=== PATIENT | male | born 1950 | race Hispanic/Latino ===

== ENCOUNTER → 2018-01-20 | Outpatient (CLI) | payer MEDICARE ==
[~2018-01-20] MED LIST: ACET-2247 PO; ASPI-1005 PO; ASPI-1012 PO; Aspirin PO; BRIM5DRO4 OU; DIAZ5TAB4 PO; FURO20TA4 PO; HYDR-309 PO; HYDR25TA PO; LATANOPROST OU; LISI-617 PO; MELO-108 PO; NAPR-1023 PO; OXYC5 PO; PREG25 PO; SIMV20TA6 PO; TAMS0.4C32 PO; UREA TP
== END | disposition home or self-care (01) ==
LOC: OIH 15:12
PROVIDERS: ATTEND Internal Medicine
DX: I50.20 Unspecified systolic (congestive) heart failure (principal)
CPT/HCPCS: 71046

== ENCOUNTER 2018-01-29 15:30 | Inpatient (IN) | payer MEDICARE ==
[~2018-01-29] VITALS: Ht 175.3 cm; Wt 117.6 kg
[~2018-01-29 15:30] MED LIST changes: -ACET-2247 PO; -ASPI-1005 PO; -ASPI-1012 PO; -Aspirin PO; -BRIM5DRO4 OU; -DIAZ5TAB4 PO; -FURO20TA4 PO; -HYDR-309 PO; -MELO-108 PO; -NAPR-1023 PO; -OXYC5 PO; -PREG25 PO; -UREA TP
[2018-01-29 16:30] VITALS: BP 125/65
[2018-01-29 16:43] LABS: BASOPHILS % (AUTO) 0.7 % (0.0-5.0); EOSINOPHILS % (AUTO) 7.4 % (0.0-8.0); HEMATOCRIT 44.3 % (42-54); LYMPHOCYTES % (AUTO) 24.7 % (21.0-51.0); MEAN CORPUSCULAR HEMOGLOBIN 30.2 pg (27.0-33.0); MEAN CORPUSCULAR HGB CONC 34.4 g/dL (32.0-36.0); MEAN CORPUSCULAR VOLUME 87.8 fL (79-99); MONOCYTES % (AUTO) 9.1 % (3.0-13.0); NEUTROPHILS % (AUTO) 58.1 % (40.0-77.0); PLATELET COUNT (AUTO) 148 K/uL (130-400); RED BLOOD CELL COUNT(AUTO) 5.04 MIL/uL (4.50-6.20); RED CELL DISTRIBUTION WIDTH 14.3 % (11.0-15.5); WHITE BLOOD COUNT (AUTO) 6.2 K/uL (4.8-10.8)
[2018-01-29 16:43] LABS: APPEARANCE,URINE Clear (CLEAR); BILIRUBIN,URINE Negative (NEGATIVE); COLOR,URINE Yellow (YELLOW); GLUCOSE, URINE (UA) Negative (NEGATIVE); KETONES,URINE Negative (NEGATIVE); LEUKOCYTE ESTERASE ,URINE Negative (NEGATIVE); NITRATE,URINE Negative (NEGATIVE); OCCULT BLOOD,URINE Negative (NEGATIVE); PROTEIN,URINE Negative (NEGATIVE); UROBILINOGEN,URINE 0.2 mg/dL (0.2-1.0)
[2018-01-29 16:52] LABS: INR 0.97 (0.85-1.15); PARTIAL THROMBOPLASTIN TIME 26.1 SEC (26.3-35.5); PROTHROMBIN TIME 10.2 SEC (9.6-11.6)
[2018-01-29] MEDS ORDERED: FURO20TA4 PO (17:17)
[2018-01-29] MEDS ORDERED: DIAZ5TAB4 PO (17:17)
[2018-02-01] VITALS (25 sets, daily range): BP systolic 105–139; BP diastolic 54–94
[2018-02-01] MEDS ORDERED: CEFAZOLIN 3GM /D5W 100ML 100 ML IV SCH (06:00)
[2018-02-01] MEDS ORDERED: SODIUM CHLORIDE 0.9% 1000ML 1,000 ML IV ONE (11:42)
[2018-02-01] MEDS ORDERED: CEFAZOLIN SODIUM 1 GM VIAL ONE ×2 (11:42→12:32)
[2018-02-01] MEDS ORDERED: TRANEXAMIC ACID 1000MG/10ML IV ONE (12:32)
[2018-02-01] MEDS ORDERED: ASPI-1005 PO (12:52)
[2018-02-01] MEDS ORDERED: BRIM5DRO4 OU (12:52)
[2018-02-01] MEDS ORDERED: NAPR-1023 PO (12:52)
[2018-02-01] MEDS ORDERED: KETOROLAC TROMETHAMINE 15MG/ML ONE (12:59)
[2018-02-01] MEDS ORDERED: ACETAMINOPHEN EXTRA STRENGTH 500 MG TABLET ONE (12:59)
[2018-02-01] MEDS ORDERED: CELECOXIB 200 MG CAP ONE (13:00)
[2018-02-01] MEDS ORDERED: BUPIVACAINE/EPI/PF 0.25% 30ML VIAL IJ SCH (13:00)
[2018-02-01] MEDS ORDERED: OXYCODONE HCL 10 MG TAB.SR.12H PO ONE (13:00)
[2018-02-01] MEDS ORDERED: MIDAZOLAM HCL 1 MG/ML 2ML VIAL ONE (13:35)
[2018-02-01] MEDS ORDERED: PROPOFOL 10 MG/ML 20ML VIAL IV ONE (13:36)
[2018-02-01] MEDS ORDERED: FENTANYL CITRATE PF 50 MCG/1 ML 5ML AMP IV ONE (13:36)
[2018-02-01] MEDS ORDERED: ROCURONIUM BROMIDE 10MG/1ML 5ML VL ONE ×2 (13:39→14:10)
[2018-02-01] MEDS ORDERED: ROPIVACAINE 0.5% 5MG/ML 30ML IJ ONE (13:40)
[2018-02-01] MEDS ORDERED: NEOSTIGMINE 5MG/5ML SYR IV ONE (14:10)
[2018-02-01] MEDS ORDERED: SODIUM CHLORIDE 0.9% 10 ML VIAL ONE (14:10)
[2018-02-01] MEDS ORDERED: GLYCOPYRROLATE 0.2 MG/ML 5 ML VIAL ONE (14:10)
[2018-02-01] MEDS ORDERED: LIDOCAINE PF 2% 5ML ABBOJECT ONE (14:10)
[2018-02-01] MEDS ORDERED: PHENYLEPHRINE HCL 10 MG/ML 1ML VIAL IV ONE (14:10)
[2018-02-01] MEDS ORDERED: EPHEDRINE SULFATE 50 MG/ML AMPULE ONE (14:10)
[2018-02-01] MEDS ORDERED: CALCIUM CARBONATE 500 MG TABLET PO PRN (15:45)
[2018-02-01] MEDS ORDERED: ONDANSETRON HCL 4 MG/2 ML VIAL IVP PRN (15:45)
[2018-02-01] MEDS ORDERED: TRAMADOL HCL 50 MG TABLET PO PRN (15:45)
[2018-02-01] MEDS ORDERED: KETOROLAC TROMETHAMINE 15MG/ML IV PRN (15:45)
[2018-02-01] MEDS ORDERED: OXYCODONE HCL 5 MG TAB PO PRN (15:45)
[2018-02-01] MEDS ORDERED: POTASSIUM CHLORIDE 10% ELIXIR 20 MEQ/15 ML UDCUP PO PRN (15:45)
[2018-02-01] MEDS: ACETAMINOPHEN EXTRA STRENGTH 500 MG TABLET PO SCH ×2 (15:45→23:38)
[2018-02-01] MEDS ORDERED: LIDOCAINE HCL-MPF 1% 2ML VIAL IVP PRN (15:45)
[2018-02-01] MEDS ORDERED: FERROUS FUMARATE 324 MG TABLET PO PRN (15:45)
[2018-02-01] MEDS ORDERED: POTASSIUM CHLORIDE 20 MEQ ERTAB PO PRN (15:45)
[2018-02-01] MEDS ORDERED: POTASSIUM CHLORIDE 20MEQ/100ML 100 ML IV PRN (15:45)
[2018-02-01] MEDS ORDERED: DiphenhydrAMINE HCL 50 MG/ML VIAL IVP PRN (15:45)
[2018-02-01] MEDS: INSULIN HUMULIN R 100 UNIT/ML 3ML SQ SCH ×2 (16:30→20:59)
[2018-02-01] MEDS: SODIUM CHLORIDE 0.9% 1000ML 1,000 ML IV SCH (17:48)
[2018-02-01] MEDS: ASPIRIN 325 MG TABLET PO SCH (20:17)
[2018-02-01] MEDS: FAMOTIDINE 20MG TAB 20 MG TAB PO SCH (20:17)
[2018-02-01] MEDS: PREGABALIN 25 MG CAP PO SCH (20:17)
[2018-02-01] MEDS: OXYCODONE HCL 5 MG TAB PO PRN (20:18)
[2018-02-01] MEDS: CELECOXIB 200 MG CAP PO SCH (20:18)
[2018-02-01] MEDS: BRIMONIDINE TARTRATE 0.2% 5 ML BOTTLE OU SCH (20:21)
[2018-02-01] MEDS: CEFAZOLIN 3GM /D5W 100ML 100 ML IV SCH (20:59)
[2018-02-01] MEDS ORDERED: TAMSULOSIN HCL 0.4 MG CAP.ER.24H PO SCH (21:00)
[2018-02-01] MEDS ORDERED: LATANOPROST 2.5 ML DROPS OU SCH (21:00)
[2018-02-01] MEDS ORDERED: LISINOPRIL 5 MG TABLET PO SCH (21:00)
[2018-02-01] MEDS ORDERED: ATORVASTATIN CALCIUM 10 MG TABLET PO SCH (21:00)
[2018-02-01] MEDS ORDERED: DIAZEPAM 5 MG TABLET PO SCH (21:00)
[2018-02-02 00:15] VITALS: BP 125/59
[2018-02-02] MEDS: SODIUM CHLORIDE 0.9% 1000ML 1,000 ML IV SCH (01:53)
[2018-02-02 04:09] VITALS: BP 115/69
[2018-02-02] MEDS: CEFAZOLIN 3GM /D5W 100ML 100 ML IV SCH (05:02)
[2018-02-02] MEDS: INSULIN HUMULIN R 100 UNIT/ML 3ML SQ SCH ×3 (05:57→16:09)
[2018-02-02 06:13] LABS: HEMATOCRIT 39.8 % (42-54); MEAN CORPUSCULAR HEMOGLOBIN 29.7 pg (27.0-33.0); MEAN CORPUSCULAR HGB CONC 33.5 g/dL (32.0-36.0); MEAN CORPUSCULAR VOLUME 88.8 fL (79-99); PLATELET COUNT (AUTO) 126 K/uL (130-400); RED BLOOD CELL COUNT(AUTO) 4.48 MIL/uL (4.50-6.20); RED CELL DISTRIBUTION WIDTH 14.5 % (11.0-15.5); WHITE BLOOD COUNT (AUTO) 9.6 K/uL (4.8-10.8)
[2018-02-02 06:22] LABS: CREATININE 0.9 mg/dL (0.5-1.5)
[2018-02-02 07:57] VITALS: BP 113/61
[2018-02-02] MEDS ORDERED: TAMSULOSIN HCL 0.4 MG CAP.ER.24H PO SCH (09:00)
[2018-02-02] MEDS ORDERED: HYDROCHLOROTHIAZIDE 25 MG TABLET PO SCH (09:00)
[2018-02-02] MEDS ORDERED: POLYETHYLENE GLYCOL 3350 17 GM POWD.PACK PO SCH (09:00)
[2018-02-02] MEDS ORDERED: FUROSEMIDE 20 MG TABLET PO SCH (09:00)
[2018-02-02] MEDS: OXYCODONE HCL 5 MG TAB PO PRN ×2 (09:23→13:32)
[2018-02-02] MEDS: PREGABALIN 25 MG CAP PO SCH (09:24)
[2018-02-02] MEDS: CELECOXIB 200 MG CAP PO SCH (09:24)
[2018-02-02] MEDS: FAMOTIDINE 20MG TAB 20 MG TAB PO SCH (09:24)
[2018-02-02] MEDS: ASPIRIN 325 MG TABLET PO SCH (09:25)
[2018-02-02] MEDS: BRIMONIDINE TARTRATE 0.2% 5 ML BOTTLE OU SCH (09:26)
[2018-02-02] MEDS: ACETAMINOPHEN EXTRA STRENGTH 500 MG TABLET PO SCH ×2 (10:03→15:33)
[2018-02-02 11:14] VITALS: BP 109/61
[2018-02-02 16:01] VITALS: BP 121/73
[2018-02-02] MEDS ORDERED: ASPI-1012 PO (19:14)
[2018-02-02] MEDS ORDERED: HYDR-309 PO (19:14)
[2018-02-02] MEDS ORDERED: LATANOPROST 2.5 ML DROPS OU SCH (21:00)
[2018-02-04] MEDS ORDERED: BISACODYL 10 MG SUPP.RECT RC PRN (15:45)
== END 2018-02-02 19:30 | disposition home health service (06) | DRG 470 ==
LOC: EDSTATUS 15:30 → DAHIP 02-01 11:11 → 4AH 02-01 16:52
PROVIDERS: ADMIT Orthopaedic Surgery; ATTEND Orthopaedic Surgery
PROC: 0SRD0J9 Replacement of Left Knee Joint with Synthetic Substitute, Cemented, Open Approach (ICD-10-PCS; principal; 2018-02-01 14:25)
PROC: 5A09357 Assistance with Respiratory Ventilation, Less than 24 Consecutive Hours, Continuous Positive Airway Pressure (ICD-10-PCS; 2018-02-01 14:25)
DX: M17.12 Unilateral primary osteoarthritis, left knee (principal); E11.9 Type 2 diabetes mellitus without complications; I10 Essential (primary) hypertension; E78.00 Pure hypercholesterolemia, unspecified; K21.9 Gastro-esophageal reflux disease without esophagitis; Z96.651 Presence of right artificial knee joint; G89.29 Other chronic pain; M19.90 Unspecified osteoarthritis, unspecified site
CPT/HCPCS: 36415; 80048; 81003; 82948; 85025; 85027; 85610; 85730; 88305; 88311; 96374; A4218; J0690; J1885; J2001; J2250; J2370; J2704; J2710; J2795; J3010; J3490; J7030